=== PATIENT | female | born 1960 | race Caucasian/White ===

== ENCOUNTER 2020-01-23 10:15 | Day surgery (SDC) | payer MEDICARE ==
[2020-01-22 09:47] LABS: ANION GAP 9.1 mmol/L (8-16); CALCIUM 9.2 mg/dL (8.5-10.1); POTASSIUM - SERUM 4.1 mmol/L (3.5-5.1)
[2020-01-22 09:55] LABS: BASOPHILS 0.1 % (0-2); EOSINOPHILS 1.5 % (0-7); HEMATOCRIT 44.5 % (36.0-48.0); IMMATURE GRANULOCYTES 0.1 % (0-5); LYMPHOCYTES 38.6 % (15-50); MCH 30.1 pg (26.0-34.0); MCHC 33.7 g/dL (31.0-37.0); MCV 89.2 fL (80.0-100.0); MONOCYTES 8.2 % (2-11); NEUTROPHILS 51.5 % (40-80); PLATELET COUNT 254 10x3/uL (130-400); RBC 4.99 10x6/uL (4.00-5.40); WBC 7.4 10x3/uL (4.8-10.8)
[2020-01-22 09:59] LABS: APTT 27.9 SECONDS (22.8-39.4)
[2020-01-22 10:00] LABS: INR 0.93 (0.85-1.17); PROTIME 12.5 SECONDS (11.6-15.0)
[~2020-01-23] VITALS: Ht 165.1 cm; Wt 94.8 kg
--- NOTE | ~2020-01-23 | OP ---
PATIENT NAME: AURELIANO BRENNER MEDICAL RECORD: [id number] :60 LOCATION:[facility] ADMISSION DATE: SURGEON: CHUCKY MIRANDA DATE OF OPERATION: 01/23/2020 SURGEON: Chucky Miranda DPM PREOPERATIVE DIAGNOSIS: Hallux abductovalgus, left foot. POSTOPERATIVE DIAGNOSIS: Hallux abductovalgus, left foot. PROCEDURE: Salbador bunionectomy, left foot. ANESTHESIA: General. HEMOSTASIS: Pneumatic ankle tourniquet inflated to 250 mmHg. ESTIMATED BLOOD LOSS: Minimal. MATERIALS: Two 2.5 mm cannulated [employer] screws. INJECTABLES: 25 cc of 0.5% bupivacaine plain. The patient has longstanding history of pain associated bunion deformity. She is here today for surgical correction of that problem. We have reviewed the risks and benefits of the procedure, complications were discussed, all questions were answered. She was appropriately consented for the above-mentioned procedure. The patient was brought into the operating room and placed on the operating table in a supine position. A timeout was called with Dr. Miranda, who identified the patient, the surgical site, and the surgery to be performed. Once appropriate anesthesia was obtained, the foot was prepped and draped in the usual aseptic manner. The pneumatic ankle tourniquet was inflated to 250 mmHg on the well-padded left ankle. Attention was directed to the dorsal aspect of the first metatarsophalangeal joint where a 6 cm curvilinear incision was made just medial to the extensor hallucis longus tendon. This incision was carried deep to soft tissue with care being taken to retract all vital neurovascular structures. All bleeders were cauterized along the way. The first intermetatarsal space was then entered utilizing both sharp and blunt dissection. The conjoined tendon of the abductor hallucis tendon was identified and sharply transected at the base of the proximal phalanx. Attention was then directed further proximally to the level of the fibular sesamoidal ligament. This ligament was then sharply transected. Attention was then directed to the dorsal aspect of the first metatarsophalangeal joint. The periosteum was reflected from the joint, thus revealing the head of the first metatarsal and the base of the proximal phalanx. The medial eminence of the first metatarsal head was noted to be hypertrophied. Utilizing a sagittal saw, all hypertrophied bone was resected. Next utilizing a sagittal saw, a V-shaped osteotomy was created in the head of the first metatarsal. This was a kxqjcuu-ikr-ubiregy osteotomy with the apex oriented distally. The capital fragment was shifted laterally and impacted upon the OPERATIVE REPORT [id number] AURELIANO BRENNER first metatarsal shaft. Next, utilizing manufacture's recommended technique, two 2.5 mm cannulated screws were placed across the osteotomy. All remaining overhanging bone from the medial aspect of the first metatarsal was resected with a saw. The surgical site was then investigated and a solid fixation was noted and range of motion of first metatarsophalangeal joint was full. The surgical site was then irrigated with copious amounts of normal sterile saline via bulb syringe. The periosteum was reapproximated and coapted using 3-0 Vicryl. The subQ was reapproximated and coapted using 4-0 Vicryl. The skin was reapproximated and coapted using 4-0 nylon. A dressing consisting of Xeroform, 4 x 4's, Kerlix, and Coban was applied to the left foot. The pneumatic ankle tourniquet was deflated and capillary refill time is immediate to all digits of the left foot. The patient was discharged home with instructions to ice and elevate the left foot. She was dispensed a boot to further help offload the foot. She also has a knee scooter to further assist with nonweightbearing. I provided her with a prescription for Bulan 7.5/325, #20. She has my cell phone number for any afterhours difficulties and there were no complications with the procedure. We will follow up with her in 1 week. TRANSINT:[id number] Voice Confirmation ID: [id number] DOCUMENT ID: [id number] CHUCKY MIRANDA CC: [id number] DICTATION DATE: 01/23/20 1552 PAINTER BARREL: 01/23/20 2225 [facility] 01/23/20 [place] [id number] [place] [address]
[~2020-01-23 10:15] MED LIST: ALDACTONE25 MG PO; BAYER CHEWABLE81 MG PO; BUMETANIDE0.5 MG PO; CYMBALTA60 MG PO; CYTOMEL5 MCG PO; HYDROCODON-ACE1 EA10 PO; KLONOPIN1 MG PO; LISINOPRIL5 MG PO; ROPINIROLE HCL1 MG PO; SINGULAIR10 MG PO; SYNTHROID88 MCG PO; TRAZODONE HCL150 MG PO; ZOVIRAX200 MG PO
[2020-01-23 11:54] VITALS: BP 135/71; Ht 165.1 cm; Wt 94.8 kg
--- NOTE | 2020-01-23 18:12 | NUR ---
1705-DISCHARGE CRITERIA MET. REMOVED IV FROM RIGHT HAND WITH CATH INTACT,DISPOSED INTO SHARPS.COVERED SITE WITH GUAZE,SECURED WITH MEDIPORE TAPE. REVIEWED POST OPERATIVE INSTRUCTIONS AND FOLLOW UP APPOINTMENT. VERBALIZED UNDERSTANDING
--- NOTE | 2020-01-23 18:13 | NUR ---
1715-ESCORTED OUT VIA W/C WITH SPOUSE AWAITING TO DRIVE HOME
== END 2020-01-23 17:15 | disposition home or self-care (01) ==
LOC: D.OPS 10:15 → D.PAN 12:30 → D.OPS 17:15
PROVIDERS: Anesthesiology; ATTEND Podiatrist
DX: M20.12 Hallux valgus (acquired), left foot (principal); M77.31 Calcaneal spur, right foot; M65.871 Other synovitis and tenosynovitis, right ankle and foot